=== PATIENT | female | born 1930 | race Caucasian/White ===

== ENCOUNTER → 2017-04-23 | Outpatient (CLI) | payer MEDICARE, MEDICAID ==
[~2017-04-23] MED LIST: ACULAR LS5 ML OP; ALBUTEROL2 PUFFS/17 IN; ASPIRIN CHILDRE81 MG PO; BOT OP; CARVEDILOL 25MG25 MG PO; CIPRO 500MG TA500 MG PO; COUMADIN 2MG TAB2 MG PO; COUMADIN4 MG PO; CYMBALTA30 MG PO; FOLIC ACID 1MG T1 MG PO; FUROSEMIDE 40MG40 M1 PO; GLUCOVANCE 5 MG1 TAB PO; HYDROCODONE BIT1 T39 PO; HYDROCODONE-APA1 TA2 PO; LASIX40 MG PO; LEVEMIR100 U/M1 SC; LISINOPRIL 20MG20 MG PO; LISINOPRIL20 MG PO; LISINOPRIL40 MG PO; LORTAB 5/500 501 TAB PO; LOSARTAN POTAS100 MG PO; MEDROL 4MG. DOSE4 MG PO; METHOTREXATE 22.5 MG PO; NOVOLOG FLEX100 U/ML SC; NYSTATIN 150 M150 ML; OMEPRAZOLE20 MG PO; PAXIL10 MG PO; PLAVIX75 MG PO; PRED FORTE OP; SPIRONOLACTONE25 MG PO; STOOL SOFTENER240 MG PO; TRICOR145 MG PO; WARFARIN 3MG TAB3 MG PO; ZITHROMAX Z-PA250 M1 PO; ZITHROMAX Z-PA250 M2 PO
== END ==
LOC: RT 12:30
DX: I48.91 Unspecified atrial fibrillation (principal)

== ENCOUNTER → 2017-05-26 | Outpatient (CLI) | payer MEDICARE, MEDICAID ==
[2017-05-26 14:31] LABS: BUN 12 mg/dL (7-18)
[2017-05-26 14:32] LABS: GFR (ESTIMATED) 47 ML/MIN (59-)
== END ==
LOC: LAB 11:46
PROVIDERS: Physician Assistant
DX: I50.9 Heart failure, unspecified (principal); E87.6 Hypokalemia; E83.42 Hypomagnesemia

== ENCOUNTER 2017-06-10 11:50 | Emergency (ER) | payer MEDICARE, MEDICAID ==
[~2017-06-10] VITALS: Ht 170.2 cm; Wt 74.8 kg
[2017-06-10 12:14] LABS: LYMPH # 0.7 K/mm3 (0.7-4.5); LYMPH % 6.8 % (10-50.0)
[2017-06-10 13:05] LABS: NEUTROPHILS 92 % (42-76)
--- NOTE | 2017-06-10 13:08 | RADIOLOGY REPORT PS360 ---
CT ABD PELVIS W/O CONTRAST CLINICAL INDICATION: No bleed, vomiting blood R/O GI BLEED,VOMITING BLOOD ORDERING PHYSICIAN: Guanako Lou MD PATIENT AGE: 87 years COMPARISON: 03/12/2009 TECHNIQUE: Axial images obtained with sagittal and coronal reformats. PROCEDURE: Oral Contrast: None IV Contrast: None . FINDINGS: Lung bases show prior median sternotomy with cardiomegaly and multiple pacemaker leads. There is a moderate sized hiatal hernia. Fibrotic changes are present in the lung bases with pleural thickening in the left lung base posterior laterally. The liver, spleen, adrenal glands, and pancreas show no acute finding on this unenhanced exam. There is extensive vascular calcification. No intestinal obstruction or free air is evident. The appendix has an unremarkable appearance. There is extensive diverticulosis of the descending and sigmoid colon but no evidence of diverticulitis. No mass or focal inflammatory change evident. IMPRESSION: 1. No acute finding. 2. Extensive colonic diverticulosis without diverticulitis. 3. Moderate-sized hiatal hernia
--- NOTE | 2017-06-10 14:31 | Emergency Room Report ---
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 PT IS ON A BLOOD THINNER. PT HASN'T HAD ANY ADDITIONAL ISSUES SINCE THE VOMITING AT THE [place]. 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 N Clinical Suspician of Infection? N Mental Status: 1 - Regular (Normal Baseline) Sepsis Risk:Low Sepsis Risk Have you (or family members/close friends) recently traveled outside the [place]? N If Yes, where/when: Have you had exposure to infectious disease within the past month? TB? Other? Specify: Source patient, RN notes reviewed, family, RN/MD Exam Limitations no limitations Comment This is an 87-year-old brought by EMS from local senior care after she had an episode of hematemesis. EMS was told that patient had quite a bit of bright red blood in both, assuming that she has vomited it. She has a history of ALLERGIES, with frequent nosebleeds. Patient's son is present in the emergency room, at bedside advising that he believes this is simply episode of epistaxis. ALLERGIES Coded Allergies: No Known Allergies (05/02/16) Home Medications Active Scripts Carvedilol (Carvedilol 25MG) 25 MG PO BID #60 TAB Ref 11 Prov: 04/05/15 Furosemide 40 MG PO BID #60 TAB Ref 5 Prov: 04/05/15 Reported Medications INSULIN DETEMIR (Levemir 3ML 100 UNITS/ML) 24 UNITS SC QHS Insulin Aspart, Recombinant (Novolog Flexpen) 10 UNITS SC AC ASPIRIN (Aspirin) 81 MG PO DAILY Methotrexate 15 MG PO FRIDAY Omeprazole (Omeprazole 20MG) 20 MG PO DAILY DULOXETINE HCL (Cymbalta 30MG) 30 MG PO DAILY WARFARIN SOD (Coumadin) 2.5 MG PO DAILY Losartan Potassium (Losartan 100MG) 100 MG PO DAILY History Medical History General CAD? No Angina: Yes SC: Yes Hypertension? Yes Hyperlipidemia? No CHF? Yes DVT? No PE? No COPD? No Asthma? No Anemia? Yes Hernia? No Thyroid Problems? No Hypothyroidism? No CVA? Yes Seizures? 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 No UTI? No Stones? No GB Disease: Yes Nephritic Syndrome? No Asplenia? No Hepatitis? No Sickle Cell Disease? No Cataracts? Yes Glaucoma? No MRSA? No TB? No Cancer? No More? Yes Additional hx: Psoriatic arthritis, diabetic neuropathy Immunization Hx Ped.Immunizations UTD Yes DT/Tetanus > 10 Years Ago Flu 2015-16FSN Pneumonia Received In Past Surgical Hx Previous Surgery?Y GallbladdER Tubal Ligation BLADDER REPAIR Hysterect PACEMAKER CARDIAC STENTS X1 Coronary Artery Bypass CATARACT SX BL Family History Family Hx Diabetes Yes CAD Yes Hypertension Yes Hyperlipidemia Yes Cancer Yes TB No Social History Smoking Hx Smoker: Never Smoker Tobacco: No Type N/A Are you/the child exposed to second-hand smoke: No Alcohol Alcohol: No Review of Systems All Other Systems Reviewed and Negative Gastrointestinal vomiting (hematemesis) Physical Exam Vital Signs Vital Signs Date Time Temp Pulse Resp B/P Pulse O2 O2 Flow FiO2 Ox Delivery Rate 06/10 1524 70 18 133/77 98 06/10 1508 72 18 139/71 98 06/10 1414 70 18 146/67 97 06/10 1324 70 18 138/71 97 06/10 1152 97.8 81 18 129/86 97 General Appearance normal appearance, WD/WN, no apparent distress Ear, Nose, Throat hearing grossly normal, normal pharynx, normal oropharynx, dentures Dry blood in the LEFT neck consistent with recent epistaxis. Respiratory Status Yes: trachea midline, chest symmetrical, non tender chest. No: respiratory distress. Lung Sounds bilateral: normal breath sounds, lungs clear. 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 No Comment [id number] discussed with Dr. Jameson, advised the patient findings and presentation. As patient is medically stable on this exam, with hemoglobin 9.0, Dr. Jameson advised to use a 46 just a few days ago, hemorrhage appears unlikely. Dr. Jameson recommended patient discharged home and he'll see her in the senior care within the next couple days. Results/Orders Laboratory Tests 06/10/17 1205: Sodium 139, Potassium 4.1, Chloride 101, Carbon Dioxide 35 H, BUN 17, Creatinine 1.2 H, Estimated Creat Clear 40 L, Estimated GFR (MDRD) 43 L, Glucose 172 H, Calcium 8.9, Total Bilirubin 0.5, AST 29, ALT 23, Alkaline Phosphatase 129 H, Troponin I 0.06, Total Protein 7.3, Albumin 2.7 L, Globulin 4.6 H, Albumin/Globulin Ratio 0.6 L, WBC 10.1, RBC 3.22 L, Hgb 9.0 L, Hct 30.4 L, MCV 94.3, RDW 19.1 H, Plt Count 335, MPV 8.5, Gran % 85.8 H, Gran # 8.7 H, Total Counted 100, Lymphocytes % 6.8 L, Monocytes % 4.2, Eosinophils % 2.4, Basophils % 0.7, Neutrophils 92 H, Lymphocytes (Manual) 3 L, Lymphocytes # 0.7, Monocytes (Manual) 3, Monocytes # 0.4, Eosinophils # 0.2, Eosinophils # ( Manual) 2, Basophils # 0.1, Platelet Estimate NORMAL, Hypochromasia 2+, PUBS MCHC 29.6 L, MCH 27.9 06/10/17 1200: Stool Occult Blood Cancelled, Urine Color Cancelled, Urine Appearance Cancelled, Urine pH Cancelled, Ur Specific [place] Cancelled Current Medication Orders Sig/Benjamin Start time Last Medication Dose Route Stop Time Status Admin Pantoprazole Sodium 0 .STK-MED ONE 06/10 121 DC IV Sodium Chloride 500 ML .STK-MED ONE 06/10 1216 DC IV Pantoprazole Sodium 40 MG ONCE ONE 06/10 1200 DC 06/10 IV 06/10 1201 1229 Sodium Chloride 10 ML PRN PRN 12/12 1200 DCD IV 06/11 1159 Sodium Chloride 10 ML ONCE ONE 06/10 1200 DC IV 06/10 1201 Sodium Chloride 500 ML .Q1H 06/10 1200 DC 06/10 IV 06/10 1259 1230 Sodium Chloride 10 ML PRN PRN 06/10 1200 DCD IV 06/11 1159 Orders Procedure Date/time Status DIET-NOTHING BY MOUTH 06/10 D Active DIFFERENTIAL-WBC 06/10 1205 Complete ELECTROCARDIOGRAM REQUEST 06/[address] ABD/PELVIS REQ 06/10 1200 Complete IV SALINE LOCK 06/10 1200 Active TROPONIN I 06/10 1200 Complete CBC WITH AUTO DIFF 06/10 1200 Complete CHEM 12 PROFILE 06/10 1200 Complete 12 LEAD EKG-DORY (INITIAL) 06/10 UNK Active 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 of ischemic chgs, no ectopy, normal QRS, normal MT, no EKG for comparison, non-spec. ST/Twave chgs, ST elevation, ST depression, LBBB, RBBB, ectopy, abnormal Q waves XRAY/CT/US XRAY/CT/US 1 XRAY chest XR interpretation by reviewed by me, discussed w/radiologist XRAY/CT/US 2 CT abdomen, pelvis CT interpretation by discussed w/radiologist CT Results abnormal Comment See radiologist's report Departure Departure Time of Disposition 1451 Disposition DC Home or Self Care(routine) Clinical Impression Primary Impression: Upper GI bleed Secondary Impressions: Epistaxis Condition STABLE Referrals Layton AREVALO,Jonatan HOLCOMB,CHEYANNE Jameson MD,Marco Antonio (Family): Today after leaving ER please call and schedule an appointment Yesenia Luna MD, Alicia YOUNG MD,CRYSTAL Mendoza Patient Instructions DI for Upper GI Endoscopy, Gastrointestinal Bleeding Additional Instructions Please follow-up with Dr. Jameson, call the office and inquired when he will be at the senior care for the next scheduled visit. Please follow-up with one of the local gastrointestinal specialists, listed here , in order to undergo an EGD. Discharge Counseling Counseled pt/family regarding diagnosis, test results, medications/RX, home care, follow up needs Comment Please follow-up with Dr. Jameson, call the office and inquired when he will be at the senior care for the next scheduled visit. Please follow-up with one of the local gastrointestinal specialists, listed here , in order to undergo an EGD. ED Critical Care Critical Care No at 1900
--- NOTE | 2017-06-10 14:31 | Emergency Room Report ---
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 PT IS ON A BLOOD THINNER. PT HASN'T HAD ANY ADDITIONAL ISSUES SINCE THE VOMITING AT THE [place]. 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 N Clinical Suspician of Infection? N Mental Status: 1 - Regular (Normal Baseline) Sepsis Risk:Low Sepsis Risk Have you (or family members/close friends) recently traveled outside the [place]? N If Yes, where/when: Have you had exposure to infectious disease within the past month? TB? Other? Specify: Source patient, RN notes reviewed, family, RN/MD Exam Limitations no limitations Comment This is an 87-year-old brought by EMS from local snf after she had an episode of hematemesis. EMS was told that patient had quite a bit of bright red blood in both, assuming that she has vomited it. She has a history of ALLERGIES, with frequent nosebleeds. Patient's son is present in the emergency room, at bedside advising that he believes this is simply episode of epistaxis. ALLERGIES Coded Allergies: No Known Allergies (05/02/16) Home Medications Active Scripts Carvedilol (Carvedilol 25MG) 25 MG PO BID #60 TAB Ref 11 Prov: 04/05/15 Furosemide 40 MG PO BID #60 TAB Ref 5 Prov: 04/05/15 Reported Medications INSULIN DETEMIR (Levemir 3ML 100 UNITS/ML) 24 UNITS SC QHS Insulin Aspart, Recombinant (Novolog Flexpen) 10 UNITS SC AC ASPIRIN (Aspirin) 81 MG PO DAILY Methotrexate 15 MG PO FRIDAY Omeprazole (Omeprazole 20MG) 20 MG PO DAILY DULOXETINE HCL (Cymbalta 30MG) 30 MG PO DAILY WARFARIN SOD (Coumadin) 2.5 MG PO DAILY Losartan Potassium (Losartan 100MG) 100 MG PO DAILY History Medical History General CAD? No Angina: Yes SD: Yes Hypertension? Yes Hyperlipidemia? No CHF? Yes DVT? No PE? No COPD? No Asthma? No Anemia? Yes Hernia? No Thyroid Problems? No Hypothyroidism? No CVA? Yes Seizures? 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 No UTI? No Stones? No GB Disease: Yes Nephritic Syndrome? No Asplenia? No Hepatitis? No Sickle Cell Disease? No Cataracts? Yes Glaucoma? No MRSA? No TB? No Cancer? No More? Yes Additional hx: Psoriatic arthritis, diabetic neuropathy Immunization Hx Ped.Immunizations UTD Yes DT/Tetanus > 10 Years Ago Flu 2015-16FSN Pneumonia Received In Past Surgical Hx Previous Surgery?Y GallbladdER Tubal Ligation BLADDER REPAIR Hysterect PACEMAKER CARDIAC STENTS X1 Coronary Artery Bypass CATARACT SX BL Family History Family Hx Diabetes Yes CAD Yes Hypertension Yes Hyperlipidemia Yes Cancer Yes TB No Social History Smoking Hx Smoker: Never Smoker Tobacco: No Type N/A Are you/the child exposed to second-hand smoke: No Alcohol Alcohol: No Review of Systems All Other Systems Reviewed and Negative Gastrointestinal vomiting (hematemesis) Physical Exam Vital Signs Vital Signs Date Time Temp Pulse Resp B/P Pulse O2 O2 Flow FiO2 Ox Delivery Rate 06/10 1524 70 18 133/77 98 06/10 1508 72 18 139/71 98 06/10 1414 70 18 146/67 97 06/10 1324 70 18 138/71 97 06/10 1152 97.8 81 18 129/86 97 General Appearance normal appearance, WD/WN, no apparent distress Ear, Nose, Throat hearing grossly normal, normal pharynx, normal oropharynx, dentures Dry blood in the LEFT neck consistent with recent epistaxis. Respiratory Status Yes: trachea midline, chest symmetrical, non tender chest. No: respiratory distress. Lung Sounds bilateral: normal breath sounds, lungs clear. 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 No Comment [id number] discussed with Dr. Jameson, advised the patient findings and presentation. As patient is medically stable on this exam, with hemoglobin 9.0, Dr. Jameson advised to use a 46 just a few days ago, hemorrhage appears unlikely. Dr. Jameson recommended patient discharged home and he'll see her in the snf within the next couple days. Results/Orders Laboratory Tests 06/10/17 1205: Sodium 139, Potassium 4.1, Chloride 101, Carbon Dioxide 35 H, BUN 17, Creatinine 1.2 H, Estimated Creat Clear 40 L, Estimated GFR (MDRD) 43 L, Glucose 172 H, Calcium 8.9, Total Bilirubin 0.5, AST 29, ALT 23, Alkaline Phosphatase 129 H, Troponin I 0.06, Total Protein 7.3, Albumin 2.7 L, Globulin 4.6 H, Albumin/Globulin Ratio 0.6 L, WBC 10.1, RBC 3.22 L, Hgb 9.0 L, Hct 30.4 L, MCV 94.3, RDW 19.1 H, Plt Count 335, MPV 8.5, Gran % 85.8 H, Gran # 8.7 H, Total Counted 100, Lymphocytes % 6.8 L, Monocytes % 4.2, Eosinophils % 2.4, Basophils % 0.7, Neutrophils 92 H, Lymphocytes (Manual) 3 L, Lymphocytes # 0.7, Monocytes (Manual) 3, Monocytes # 0.4, Eosinophils # 0.2, Eosinophils # ( Manual) 2, Basophils # 0.1, Platelet Estimate NORMAL, Hypochromasia 2+, PUBS MCHC 29.6 L, MCH 27.9 06/10/17 1200: Stool Occult Blood Cancelled, Urine Color Cancelled, Urine Appearance Cancelled, Urine pH Cancelled, Ur Specific [place] Cancelled Current Medication Orders Sig/Benjamin Start time Last Medication Dose Route Stop Time Status Admin Pantoprazole Sodium 0 .STK-MED ONE 06/10 121 DC IV Sodium Chloride 500 ML .STK-MED ONE 06/10 1216 DC IV Pantoprazole Sodium 40 MG ONCE ONE 06/10 1200 DC 06/10 IV 06/10 1201 1229 Sodium Chloride 10 ML PRN PRN 12/12 1200 DCD IV 06/11 1159 Sodium Chloride 10 ML ONCE ONE 06/10 1200 DC IV 06/10 1201 Sodium Chloride 500 ML .Q1H 06/10 1200 DC 06/10 IV 06/10 1259 1230 Sodium Chloride 10 ML PRN PRN 06/10 1200 DCD IV 06/11 1159 Orders Procedure Date/time Status DIET-NOTHING BY MOUTH 06/10 D Active DIFFERENTIAL-WBC 06/10 1205 Complete ELECTROCARDIOGRAM REQUEST 06/[address] ABD/PELVIS REQ 06/10 1200 Complete IV SALINE LOCK 06/10 1200 Active TROPONIN I 06/10 1200 Complete CBC WITH AUTO DIFF 06/10 1200 Complete CHEM 12 PROFILE 06/10 1200 Complete 12 LEAD EKG-DORY (INITIAL) 06/10 UNK Active CM/EKG 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 of ischemic chgs, no ectopy, normal QRS, normal LA, no EKG for comparison, non-spec. ST/Twave chgs, ST elevation, ST depression, LBBB, RBBB, ectopy, abnormal Q waves XRAY/CT/US XRAY/CT/US 1 XRAY chest XR interpretation by reviewed by me, discussed w/radiologist XRAY/CT/US 2 CT abdomen, pelvis CT interpretation by discussed w/radiologist CT Results abnormal Comment See radiologist's report Departure Departure Time of Disposition 1451 Disposition DC Home or Self Care(routine) Clinical Impression Primary Impression: Upper GI bleed Secondary Impressions: Epistaxis Condition STABLE Referrals Layton AREVALO,Jonatan HOLCOMB,CHEYANNE Jameson MD,Marco Antonio (Family): Today after leaving ER please call and schedule an appointment Yesenia Luna MD, Alicia YOUNG MD,CRYSTAL Mendoza Patient Instructions DI for Upper GI Endoscopy, Gastrointestinal Bleeding Additional Instructions Please follow-up with Dr. Jameson, call the office and inquired when he will be at the snf for the next scheduled visit. Please follow-up with one of the local gastrointestinal specialists, listed here , in order to undergo an EGD. Discharge Counseling Counseled pt/family regarding diagnosis, test results, medications/RX, home care, follow up needs Comment Please follow-up with Dr. Jameson, call the office and inquired when he will be at the snf for the next scheduled visit. Please follow-up with one of the local gastrointestinal specialists, listed here , in order to undergo an EGD. ED Critical Care Critical Care No at 1900
--- NOTE | 2017-06-10 14:42 | RADIOLOGY REPORT PS360 ---
CHEST-PORTABLE HISTORY: Recent pacemaker placement, heart disease GI BLEED ORDERING PHYSICIAN: Guanako Lou MD PATIENT AGE: 87 years COMPARISON: 04/06/2015 FINDINGS: Cardiomegaly. Prior median sternotomy with aortic and mitral valve replacement. There are 4 pacemaker leads to the region of the right atrium, one in the region of the right ventricle, and one in region of the coronary sinus. There is cardiomegaly with pulmonary venous congestion and small left pleural effusion/pleural thickening consistent with CHF. There is diffuse prominence of the interstitium consistent with chronic interstitial lung disease. IMPRESSION: 1. Mild CHF with cardiomegaly and postsurgical changes. 2. Chronic interstitial lung disease with chronic blunting of the left CP angle
[2017-06-10 15:24] VITALS: BP 133/77
== END 2017-06-10 15:19 | disposition home or self-care (01) ==
LOC: ER 11:50
PROVIDERS: Emergency Medicine
DX: K92.2 Gastrointestinal hemorrhage, unspecified (principal); R04.0 Epistaxis; Z79.01 Long term (current) use of anticoagulants; Z79.82 Long term (current) use of aspirin; Z79.4 Long term (current) use of insulin; Z79.899 Other long term (current) drug therapy